=== PATIENT | female | born 1950 | race Caucasian/White ===

== ENCOUNTER → 2016-08-10 16:35 | Outpatient (CLI) | payer BC ==
[2009-10-15 07:06] VITALS: BMI 20.9
== END | disposition home or self-care (01) ==
LOC: D.MAMMO 14:45
DX: Z12.31 Encounter for screening mammogram for malignant neoplasm of breast (principal)

== ENCOUNTER → 2017-08-31 17:57 | Outpatient (CLI) | payer BC ==
[2009-10-15 07:06] VITALS: BMI 20.9
== END | disposition home or self-care (01) ==
LOC: D.MAMMO 15:30
DX: Z12.31 Encounter for screening mammogram for malignant neoplasm of breast (principal)

== ENCOUNTER → 2017-12-21 18:16 | Outpatient (CLI) | payer MEDICARE ==
[2009-10-15 07:06] VITALS: BMI 20.9
[2017-12-21 19:43] LABS: ALT (SGPT) 47 U/L (10-68); CHOL - HDL RATIO 3.6 ratio (2.3-4.1); CHOLESTEROL, TOTAL 153 mg/dL (0-200); CREATINE KINASE 232 UL (21-215); HDL CHOLESTEROL 43 mg/dL (32-96); LDL CHOLESTEROL 91 mg/dL (0-100); LDL-HDL RATIO 2.1 ratio (1.5-3.5); TRIGLYCERIDE 96 mg/dL (30-200)
[2017-12-21 19:45] LABS: CKMB 1.7 U/L (0.0-3.6)
== END | disposition home or self-care (01) ==
LOC: D.LABREF 18:16
PROVIDERS: Internal Medicine Cardiovascular Disease
DX: E78.5 Hyperlipidemia, unspecified (principal)

== ENCOUNTER → 2018-02-01 10:07 | Outpatient (CLI) | payer MEDICARE ==
[2009-10-15 07:06] VITALS: BMI 20.9
[2018-02-01 13:05] LABS: CHOL - HDL RATIO 2.7 ratio (2.3-4.1); LDL-HDL RATIO 1.3 ratio (1.5-3.5)
== END | disposition home or self-care (01) ==
LOC: D.LABREF 10:07
PROVIDERS: Internal Medicine Cardiovascular Disease
DX: E78.5 Hyperlipidemia, unspecified (principal)

== ENCOUNTER → 2018-04-17 10:26 | Outpatient (CLI) | payer MEDICARE, OTHER ==
[2009-10-15 07:06] VITALS: BMI 20.9
== END | disposition home or self-care (01) ==
LOC: D.RAD 10:26
DX: R05 Cough (principal)

== ENCOUNTER → 2018-04-19 14:07 | Outpatient (CLI) | payer MEDICARE, OTHER ==
[2009-10-15 07:06] VITALS: BMI 20.9
== END | disposition home or self-care (01) ==
LOC: D.CT 14:07
DX: J18.9 Pneumonia, unspecified organism (principal)

== ENCOUNTER → 2018-05-04 10:10 | Outpatient (CLI) | payer MEDICARE, OTHER ==
[2009-10-15 07:06] VITALS: BMI 20.9
== END | disposition home or self-care (01) ==
LOC: D.RAD 10:10
DX: J18.9 Pneumonia, unspecified organism (principal)

== ENCOUNTER → 2018-05-24 09:51 | Outpatient (CLI) | payer MEDICARE, OTHER ==
[2009-10-15 07:06] VITALS: BMI 20.9
== END | disposition home or self-care (01) ==
LOC: D.RAD 09:51
DX: J18.9 Pneumonia, unspecified organism (principal)

== ENCOUNTER → 2018-11-08 09:34 | Outpatient (CLI) | payer MEDICARE, OTHER ==
[2009-10-15 07:06] VITALS: BMI 20.9
[2018-11-08 17:05] LABS: CHOL - HDL RATIO 3.9 ratio (2.3-4.1)
== END | disposition home or self-care (01) ==
LOC: D.HCCARDIO 09:34
PROVIDERS: ATTEND Internal Medicine Interventional Cardiology
DX: I25.10 Atherosclerotic heart disease of native coronary artery without angina pectoris (principal)

== ENCOUNTER → 2018-11-08 17:03 | Outpatient (CLI) | payer MEDICARE, OTHER ==
[2009-10-15 07:06] VITALS: BMI 20.9
--- NOTE | ~2018-11-08 | EC ---
PATIENT:MIKEY PERRY DATE OF SERVICE: 11/08/18 SEX: F MEDICAL RECORD: [id number] DATE OF : [birth year] LOCATION:D.LAB AGE OF PATIENT: 68 ADMISSION DATE: 11/08/18 REFERRING PHYSICIAN: INTERPRETING PHYSICIAN: LYNN SMITH MD ECHOCARDIOGRAM REPORT ECHO CHARGES Date: CLINICAL DIAGNOSIS: ECHOCARDIOGRAPHIC MEASUREMENTS (adult normal given) AC root (d.<3.7cm) cm LV Septum d (<1.2 cm> cm Valve Excursion cm LV Septum (systole) cm Left Atria (s.<4.0cm> cm LVPW d(<1.2cm) cm RV (d.<2.3cm) cm LVPW (sytole) cm LV diastole(<5.6CM) cm MV E-F(>70mm/sec) cm LV systole cm LVOT Diameter cm MV exc.(>10mm) cm Est.ejection fraction (50-75%) % DOPPLER: LVIT cm/sec A cm/sec E cm/sec LA cm/sec RVSP mmHg LVOT cm/sec AOP1/2T m/s Asc. Ao cm/sec RVOT cm/sec RA cm/sec PA cm/sec AV Gradient Peak mmHg AV Mean mmHg AV Area cm MV Gradient Peak mmHg MV Mean mmHg MV Area cm COMMENTS: Sugar Drier: Retail Loan Officer: DALIA# Pericardial Effusion DATE OF SERVICE: 11/08/2018 ECHOCARDIOGRAM FINDINGS: 1. Left ventricular chamber size is within normal limits. Left ventricular systolic function is normal. Overall ejection fraction estimated at 55%. 2. Left atrium, right atrium, and right ventricular chamber sizes are within normal limits. 3. Valvular structures have normal structure and motion. ECHOCARDIOGRAM REPORT [id number] MIKEY PERRY 4. Doppler interrogation reveals trace mitral regurgitation, mild tricuspid regurgitation, no other valvular insufficiency or stenosis. Pulmonary systolic pressure is estimated at 29 mmHg. 5. No evidence of pericardial effusion or left ventricular thrombus. TRANSINT:[id number] Voice Confirmation ID: [id number] DOCUMENT ID: [id number] LYNN SMITH MD CC: [id number] DICTATION DATE: 11/08/18 1638 FIELD TECHNICIAN: 11/08/18 2120 [facility] [address] [place] [address]
== END | disposition home or self-care (01) ==
LOC: D.LABREF 17:03
PROVIDERS: ATTEND Internal Medicine Interventional Cardiology
DX: I25.10 Atherosclerotic heart disease of native coronary artery without angina pectoris (principal)

== ENCOUNTER → 2019-08-31 10:00 | Outpatient (CLI) | payer MEDICARE, OTHER ==
[2009-10-15 07:06] VITALS: BMI 20.9
== END | disposition home or self-care (01) ==
LOC: D.MAMMO 10:00
PROVIDERS: ATTEND Family Medicine
DX: Z12.31 Encounter for screening mammogram for malignant neoplasm of breast (principal)

== ENCOUNTER → 2019-09-18 17:40 | Outpatient (CLI) | payer MEDICARE, OTHER ==
[2009-10-15 07:06] VITALS: BMI 20.9
[2019-09-18 18:11] LABS: CHOL - HDL RATIO 1.8 ratio (2.3-4.1); LDL-HDL RATIO 0.3 ratio (1.5-3.5)
== END | disposition home or self-care (01) ==
LOC: D.LABREF 17:40
PROVIDERS: ATTEND Internal Medicine Interventional Cardiology
DX: E78.5 Hyperlipidemia, unspecified (principal)